=== PATIENT | female | born 1980 | race Caucasian/White ===

== ENCOUNTER 2018-09-03 09:32 | Emergency (ER) | payer BC ==
[2018-09-03] MEDS ORDERED: Acetaminophen 500 MG TAB ONE (09:51)
--- NOTE | 2018-09-03 10:25 | RAD ---
PA AND LATERAL VIEWS CHEST: HISTORY: Cough, chest pain, fever. FINDINGS: Comparison is made with the exam of 01/08/2014. The heart size is normal. The lungs are expanded without focal areas of consolidation, pneumothorace s, or pleural effusions. No acute osseous abnormalities are seen. IMPRESSION: No radiographic evidence of acute cardiopulmonary process. POS: [facility]
[2018-09-03 10:56] LABS: Pregnancy Test - Urine (BHCG) Negative (Negative); Pregu Control Background? CLEAR/WHITE (CLR/WHITE); Pregu Control Bar Appear? YES (CONTROL BAR); Specific Gravity 1.016 (1.002-1.036)
[2018-09-03] MEDS ORDERED: Benzonatate 100 MG CAP ONE (11:26)
[2018-09-03] MEDS ORDERED: Ketorolac Tromethamine 60 MG/2 ML VIAL ONE (11:26)
[2018-09-03] MEDS ORDERED: Dexamethasone 4 MG TAB ONE (11:26)
== END 2018-09-03 12:22 | disposition home or self-care (01) ==
LOC: MADERS 09:32
DX: J18.9 Pneumonia, unspecified organism (principal); J01.90 Acute sinusitis, unspecified; E03.9 Hypothyroidism, unspecified; Z79.899 Other long term (current) drug therapy
CPT/HCPCS: 71046; 81025; 96372; J1885; J8540

== ENCOUNTER 2020-08-15 22:30 | Emergency (ER) | payer BC ==
[2020-08-15 23:02] LABS: #Basophils 0.1 thou/uL (0.0-0.2); #Eosinphils 0.1 thou/uL (0.0-0.7); #Lymphocytes 2.5 thou/uL (1.20-3.40); #Monocytes 0.7 thou/uL (0.11-0.59); #Neutrophils 2.6 thou/uL (1.40-6.50); %Basophils 1.2 % (0.0-1.0); %Eosinophils 2.3 % (0.0-10.0); %Lymphocytes 42.2 % (21.0-51.0); %Monocytes 11.4 % (0.0-10.0); Hemoglobin 14.6 g/dL (12.0-16.0); Mean Corpuscular HGB CONC 33.3 g/dL (32.0-36.0); Mean Corpuscular Hemoglobin 31.7 pg (27.0-31.0); Mean Corpuscular Volume 95.3 fL (78.0-98.0); Mean Platelet Volume 9.9 fL (7.4-10.4); Platelet Count 229 thou/uL (130-400); Red Blood Cell (RBC) Count 4.61 mill/uL (4.20-5.40)
[2020-08-15] MEDS ORDERED: Aspirin Chewable 81 MG TAB ONE (23:12)
[2020-08-15] MEDS ORDERED: Nitroglycerin 0.4 MG TAB 1 EACH ONE (23:12)
[2020-08-15] MEDS ORDERED: Pantoprazole 40 MG VIAL ONE (23:12)
[2020-08-15 23:14] LABS: ALT (SGPT) 125 U/L (8-55); AST (SGOT) 40 U/L (5-34); Albumin 4.6 g/dL (3.5-5.0); Alkaline Phosphatase 77 U/L (40-110); Anion Gap 16 mmol/L (10-20); BUN (Urea Nitrogen) 11 mg/dL (7.0-18.7); Bilirubin, Total 0.5 mg/dL (0.2-1.2); Calc. Creatinine Clearance 0 mL/min (70-130); Calcium 9.6 mg/dL (7.8-10.44); Carbon Dioxide 22 mmol/L (22-29); Chloride 109 mmol/L (98-107); Globulin 2.8 g/dL (2.4-3.5); Glucose 93 mg/dL (70-105); Lipase 20 U/L (8-78); Potassium 3.9 mmol/L (3.5-5.1); Protein, Total 7.4 g/dL (6.0-8.3); Sodium 143 mmol/L (136-145)
[2020-08-16 14:42] LABS: Free T4 (Free Thyroxine) 1.31 ng/dL (0.70-1.48)
== END 2020-08-16 00:31 | disposition home or self-care (01) ==
LOC: MADERS 22:30
DX: R07.89 Other chest pain (principal); E05.80 Other thyrotoxicosis without thyrotoxic crisis or storm; R06.02 Shortness of breath; R00.2 Palpitations; K58.9 Irritable bowel syndrome, unspecified; E03.9 Hypothyroidism, unspecified
CPT/HCPCS: 71045; 80053; 83690; 84439; 84443; 84479; 84481; 84484; 85025; 85379; 93005; 94760; 96374; C9113

== ENCOUNTER 2020-12-08 08:34 | Emergency (ER) | payer BC ==
[~2020-12-08 08:34] MED LIST: Sodium Chloride 0.9% 100 ML BAG ONE
[2020-12-08] MEDS ORDERED: Sodium Chloride 0.9% 1,000 ML ONE (09:38)
[2020-12-08] MEDS ORDERED: levETIRAcetam 500 MG/5 ML VIAL ONE (09:38)
[2020-12-08 10:00] LABS: #Basophils 0.1 thou/uL (0.0-0.2); #Eosinphils 0.1 thou/uL (0.0-0.7); #Lymphocytes 1.4 thou/uL (1.20-3.40); #Monocytes 0.5 thou/uL (0.11-0.59); #Neutrophils 2.3 thou/uL (1.40-6.50); %Basophils 2.2 % (0.0-1.0); %Eosinophils 2.2 % (0.0-10.0); %Lymphocytes 32.3 % (21.0-51.0); %Monocytes 10.9 % (0.0-10.0); %Neutrophils 52.4 % (42.0-75.0); Mean Corpuscular HGB CONC 31.9 g/dL (32.0-36.0); Mean Corpuscular Hemoglobin 30.9 pg (27.0-31.0); Mean Corpuscular Volume 96.8 fL (78.0-98.0); Mean Platelet Volume 9.7 fL (7.4-10.4); Platelet Count 210 thou/uL (130-400); RBC Distribution Width 11.7 % (11.5-14.5); Red Blood Cell (RBC) Count 4.54 mill/uL (4.20-5.40); White Blood Cell (WBC) Count 4.4 thou/uL (4.8-10.8)
[2020-12-08 10:12] LABS: AST (SGOT) 25 U/L (5-34); Albumin 4.2 g/dL (3.5-5.0); Alkaline Phosphatase 57 U/L (40-110); Anion Gap 11 mmol/L (10-20); BUN (Urea Nitrogen) 7 mg/dL (7.0-18.7); Bilirubin, Total 0.5 mg/dL (0.2-1.2); CK (CPK) 36 U/L (29-168); Calc. Creatinine Clearance 0 mL/min (70-130); Calcium 9.6 mg/dL (7.8-10.44); Carbon Dioxide 24 mmol/L (22-29); Chloride 108 mmol/L (98-107); Globulin 2.6 g/dL (2.4-3.5); Glucose 97 mg/dL (70-105); Potassium 4.1 mmol/L (3.5-5.1); Protein, Total 6.8 g/dL (6.0-8.3); Sodium 139 mmol/L (136-145)
[2020-12-08 10:13] LABS: ALT (SGPT) 45 U/L (8-55)
[2020-12-08 10:54] LABS: Bilirubin Negative (Negative); Blood, Urine Trace (Negative); Clarity Clear (Clear); Glucose, Urine (Dipstick) Negative (Negative); Ketone, Urine Negative (Negative); Leukocyte Negative (Negative); Nitrite Negative (Negative); Protein, Urine (Dipstick) Negative (Neg-Trace); Urobilinogen 0.2 mg/dL (Less than 2)
[2020-12-08 10:58] LABS: Bacteria/HPF Rare-Few HPF (None Seen); RBC/HPF 0-3 HPF (0-3); WBC/HPF 0-3 HPF (0-3)
== END 2020-12-08 12:10 | disposition home or self-care (01) ==
LOC: MADERS 08:34
DX: G40.909 Epilepsy, unspecified, not intractable, without status epilepticus (principal); K58.9 Irritable bowel syndrome, unspecified; E03.9 Hypothyroidism, unspecified; Z87.891 Personal history of nicotine dependence; Z79.899 Other long term (current) drug therapy
CPT/HCPCS: 80053; 81003; 81015; 82550; 83605; 85025; 96365; J1953; J3490; J7050

== ENCOUNTER 2020-12-29 17:35 | Emergency (ER) | payer BC ==
[~2020-12-29 17:35] MED LIST changes: +Iopamidol 370 76% 125 ML VIAL FS ONE
[2020-12-29 19:00] LABS: #Eosinphils 0.2 thou/uL (0.0-0.7); #Lymphocytes 1.3 thou/uL (1.20-3.40); #Monocytes 0.5 thou/uL (0.11-0.59); %Basophils 0.9 % (0.0-1.0); %Eosinophils 3.5 % (0.0-10.0); %Lymphocytes 26.6 % (21.0-51.0); %Monocytes 9.8 % (0.0-10.0); %Neutrophils 59.2 % (42.0-75.0); Hemoglobin 14.2 g/dL (12.0-16.0); Mean Corpuscular HGB CONC 32.1 g/dL (32.0-36.0); Mean Corpuscular Hemoglobin 30.8 pg (27.0-31.0); Mean Corpuscular Volume 95.7 fL (78.0-98.0); Mean Platelet Volume 7.9 fL (7.4-10.4); Platelet Count 203 thou/uL (130-400); RBC Distribution Width 11.5 % (11.5-14.5); Red Blood Cell (RBC) Count 4.63 mill/uL (4.20-5.40)
[2020-12-29 19:18] LABS: ALT (SGPT) 40 U/L (8-55); AST (SGOT) 20 U/L (5-34); Albumin 4.5 g/dL (3.5-5.0); Alkaline Phosphatase 61 U/L (40-110); Anion Gap 12 mmol/L (10-20); BHCG - Serum Negative (NEGATIVE); BUN (Urea Nitrogen) 13 mg/dL (7.0-18.7); Bilirubin, Total 0.3 mg/dL (0.2-1.2); Calc. Creatinine Clearance 0 mL/min (70-130); Carbon Dioxide 26 mmol/L (22-29); Chloride 107 mmol/L (98-107); Globulin 2.7 g/dL (2.4-3.5); Glucose 93 mg/dL (70-105); Potassium 3.9 mmol/L (3.5-5.1); Pregs Control Background? CLEAR/WHITE (CLR/WHITE); Pregs Control Bar Appear? YES (CONTROL BAR); Protein, Total 7.2 g/dL (6.0-8.3); Sodium 141 mmol/L (136-145)
== END 2020-12-29 22:45 | disposition home or self-care (01) ==
LOC: MADERS 17:35
DX: G40.909 Epilepsy, unspecified, not intractable, without status epilepticus (principal); R93.0 Abnormal findings on diagnostic imaging of skull and head, not elsewhere classified; K58.9 Irritable bowel syndrome, unspecified; E03.9 Hypothyroidism, unspecified; Z87.891 Personal history of nicotine dependence; Z79.899 Other long term (current) drug therapy
CPT/HCPCS: 36415; 70496; 70498; 80053; 80177; 84703; 85025; J3490; Q9967

== ENCOUNTER 2021-10-04 06:54 | Emergency (ER) | payer BC ==
[2021-10-04 07:20] LABS: Bilirubin Negative (Negative); Blood, Urine Negative (Negative); Clarity Clear (Clear); Glucose, Urine (Dipstick) Negative (Negative); Ketone, Urine Negative (Negative); Leukocyte Negative (Negative); Nitrite Negative (Negative); Protein, Urine (Dipstick) Negative (Neg-Trace); Urobilinogen 0.2 mg/dL (Less than 2); pH, Urine 5.5 (5.0-9.0)
[2021-10-04] MEDS ORDERED: Morphine 4 MG/ML VIAL ONE (07:36)
[2021-10-04] MEDS ORDERED: Ondansetron PF 4 MG/2 ML Vial ONE (07:37)
[2021-10-04] MEDS ORDERED: Lactated Ringer's 1,000 ML ONE (07:37)
[2021-10-04] MEDS ORDERED: Dicyclomine 20 MG/2 ML VIAL ONE (07:37)
[2021-10-04 07:44] LABS: #Basophils 0.1 thou/uL (0.0-0.2); #Eosinphils 0.1 thou/uL (0.0-0.7); #Lymphocytes 0.6 thou/uL (1.20-3.40); #Monocytes 0.5 thou/uL (0.11-0.59); #Neutrophils 4.4 thou/uL (1.40-6.50); %Basophils 0.9 % (0.0-1.0); %Eosinophils 2.2 % (0.0-10.0); %Lymphocytes 11.2 % (21.0-51.0); %Monocytes 7.9 % (0.0-10.0); %Neutrophils 77.8 % (42.0-75.0); Hemoglobin 14.6 g/dL (12.0-16.0); Mean Corpuscular HGB CONC 32.4 g/dL (32.0-36.0); Mean Corpuscular Hemoglobin 29.7 pg (27.0-31.0); Mean Corpuscular Volume 91.7 fL (78.0-98.0); Mean Platelet Volume 10.6 fL (7.4-10.4); Platelet Count 189 thou/uL (130-400); RBC Distribution Width 11.6 % (11.5-14.5); White Blood Cell (WBC) Count 5.7 thou/uL (4.8-10.8)
[2021-10-04 07:47] LABS: Pregnancy Test - Urine (BHCG) Negative (Negative); Pregu Control Background? CLEAR/WHITE (CLR/WHITE); Pregu Control Bar Appear? YES (CONTROL BAR)
[2021-10-04 07:48] LABS: ALT (SGPT) 156 U/L (8-55); AST (SGOT) 93 U/L (5-34); Albumin 4.6 g/dL (3.5-5.0); Alkaline Phosphatase 55 U/L (40-110); Anion Gap 14 mmol/L (10-20); BUN (Urea Nitrogen) 8 mg/dL (7.0-18.7); Bilirubin, Total 0.7 mg/dL (0.2-1.2); Calc. Creatinine Clearance 0 mL/min (70-130); Calcium 9.5 mg/dL (7.8-10.44); Carbon Dioxide 24 mmol/L (22-29); Chloride 106 mmol/L (98-107); Globulin 2.9 g/dL (2.4-3.5); Glucose 97 mg/dL (70-105); Lipase 10 U/L (8-78); Protein, Total 7.5 g/dL (6.0-8.3); Sodium 140 mmol/L (136-145)
[2021-10-04 07:52] LABS: Magnesium 2.1 mg/dL (1.6-2.6)
[2021-10-04] MEDS ORDERED: Ketorolac Tromethamine 30 MG/ML VIAL ONE (08:43)
[2021-10-04] MEDS ORDERED: Iopamidol 370 76% 100 ML VIAL ONE (09:04)
[2021-10-04 09:20] LABS: SARS-CoV-2 NAA Rapid Test DETECTED (NotDetected)
== END 2021-10-04 10:28 | disposition home or self-care (01) ==
LOC: MADERS 06:54
DX: U07.1 COVID-19 (principal); R10.31 Right lower quadrant pain; R74.01 Elevation of levels of liver transaminase levels; E03.9 Hypothyroidism, unspecified
CPT/HCPCS: 74177; 76856; 80053; 81003; 81025; 83605; 83690; 83735; 85025; 94760; 96361; 96372; 96374; 96375; J0500; J1885; J2270; J2405; J7120; Q9967

== ENCOUNTER 2021-10-09 08:57 | Outpatient (CLI) | payer BC ==
[2021-10-09 12:22] LABS: ALT (SGPT) 128 U/L (8-55); AST (SGOT) 49 U/L (5-34); Albumin 4.8 g/dL (3.5-5.0); Alkaline Phosphatase 58 U/L (40-110); Anion Gap 15 mmol/L (10-20); BUN (Urea Nitrogen) 10 mg/dL (7.0-18.7); Bilirubin, Total 0.5 mg/dL (0.2-1.2); Calc. Creatinine Clearance 0 mL/min (70-130); Calcium 9.8 mg/dL (7.8-10.44); Carbon Dioxide 23 mmol/L (22-29); Chloride 106 mmol/L (98-107); Estimated GFR 107; Globulin 3.1 g/dL (2.4-3.5); Glucose 91 mg/dL (70-105); Potassium 4.3 mmol/L (3.5-5.1); Protein, Total 7.9 g/dL (6.0-8.3); Sodium 140 mmol/L (136-145)
[2021-10-09 12:25] LABS: #Eosinphils 0.2 thou/uL (0.0-0.7); #Lymphocytes 1.5 thou/uL (1.20-3.40); #Monocytes 0.5 thou/uL (0.11-0.59); #Neutrophils 2.1 thou/uL (1.40-6.50); %Basophils 0.6 % (0.0-1.0); %Eosinophils 3.5 % (0.0-10.0); %Lymphocytes 35.3 % (21.0-51.0); %Monocytes 10.8 % (0.0-10.0); %Neutrophils 49.8 % (42.0-75.0); Hemoglobin 15.2 g/dL (12.0-16.0); Mean Corpuscular HGB CONC 32.2 g/dL (32.0-36.0); Mean Corpuscular Hemoglobin 29.4 pg (27.0-31.0); Mean Corpuscular Volume 91.4 fL (78.0-98.0); Mean Platelet Volume 9.7 fL (7.4-10.4); Platelet Count 214 thou/uL (130-400); RBC Distribution Width 11.4 % (11.5-14.5); Red Blood Cell (RBC) Count 5.17 mill/uL (4.20-5.40); White Blood Cell (WBC) Count 4.3 thou/uL (4.8-10.8)
[2021-10-10 12:23] LABS: Iron 136 ug/dL (50-170); Iron Binding Capacity, Total 356 mcg/dL (265-497)
[2021-10-10 12:43] LABS: Ferritin 442.92 ng/mL (10-291)
[2021-10-10 12:53] LABS: HBSAg Index 0.25 S/CO (0-0.99); Hep A IgM AB Non-Reactive (NonReactive); Hep A IgM S/CO 0.28 S/CO (0-0.79); Hep B Surf Ag NonReactive S/CO (NonReactive)
[2021-10-10 12:54] LABS: HBCM Index 0.24 S/CO (0-0.79); Hep C IgG Ab NonReactive (NonReactive); Hep C Index 0.09 S/CO (0-0.79); Hepatitis B Core IgM Abs NonReactive (NonReactive)
[2021-10-10 13:04] LABS: Follow-up Chemistry Comp? YES; Follow-up Result - Chemistry REPORT FAXED
[2021-10-12 11:26] LABS: Reference Lab Name LABCORP
[2021-10-12 11:28] LABS: Ref Lab Test Ordered A-1 ANTITRYPSIN PHEN
== END 2021-10-09 08:58 | disposition home or self-care (01) ==
LOC: MADLAB 08:57
PROVIDERS: ATTEND Internal Medicine Gastroenterology
DX: U07.1 COVID-19 (principal); R79.89 Other specified abnormal findings of blood chemistry; R10.9 Unspecified abdominal pain; R19.7 Diarrhea, unspecified
CPT/HCPCS: 36415; 80053; 80074; 82728; 83516; 83540; 83550; 85025; 86015; 86038; 86225

== ENCOUNTER 2023-02-10 04:05 | Emergency (ER) | payer BC, OTHER ==
[2023-02-10 05:00] LABS: #Basophils 0.1 thou/uL (0.0-0.2); #Eosinphils 0.2 thou/uL (0.0-0.7); #Lymphocytes 1.9 thou/uL (1.20-3.40); #Monocytes 0.5 thou/uL (0.11-0.59); #Neutrophils 3.4 thou/uL (1.40-6.50); %Basophils 1.5 % (0.0-1.0); %Eosinophils 2.7 % (0.0-10.0); %Monocytes 8.7 % (0.0-10.0); %Neutrophils 56.1 % (42.0-75.0); Hematocrit 42.7 % (36.0-47.0); Hemoglobin 14.4 g/dL (12.0-16.0); Mean Corpuscular HGB CONC 33.8 g/dL (32.0-36.0); Mean Corpuscular Hemoglobin 33.4 pg (27.0-31.0); Mean Corpuscular Volume 98.6 fl (78.0-98.0); Mean Platelet Volume 10.6 fL (7.4-10.4); Platelet Count 170 10x3/uL (130-400); RBC Distribution Width 12.1 % (11.5-14.5); Red Blood Cell (RBC) Count 4.33 mill/uL (4.20-5.40); White Blood Cell (WBC) Count 6.1 10x3/uL (4.8-10.8)
== END 2023-02-10 05:45 | disposition home or self-care (01) ==
LOC: MADERS 04:05
DX: J02.9 Acute pharyngitis, unspecified (principal); E03.9 Hypothyroidism, unspecified; Z79.899 Other long term (current) drug therapy; Z87.891 Personal history of nicotine dependence
CPT/HCPCS: 36415; 85025; 87804; 99283

== ENCOUNTER 2023-11-20 15:19 | Outpatient (CLI) | payer OTHER | END 2023-11-20 15:20 | disposition home or self-care (01) | LOC: MADLAB 15:19 | PROVIDERS: ATTEND Registered Nurse | DX: R39.198 Other difficulties with micturition (principal) | CPT/HCPCS: 74018 ==